=== PATIENT | male | born 1940 | race Caucasian/White ===

== ENCOUNTER → 2017-06-15 | Outpatient (CLI) | payer MEDICARE ==
[~2017-06-15] MED LIST: ATOR20TA65 PO; CHOL100062 PO; GLYB1.2524 PO; HYDR-4309 PO; LOSA-51 PO; OMEP-125 PO; ONDA4TAB PO; PIOG30TA3 PO; SITA1TAB13 PO; SITA1TBM4 PO; [UNRECOGNIZED DRUG - CODE] PO
[2017-06-15 14:54] LABS: PLATELET COUNT, AUTOMATED 190 K/uL (150-450)
== END ==
LOC: LAB 14:16
PROVIDERS: ATTEND Nurse Practitioner Family
DX: E11.22 Type 2 diabetes mellitus with diabetic chronic kidney disease (principal); E11.65 Type 2 diabetes mellitus with hyperglycemia; D51.0 Vitamin B12 deficiency anemia due to intrinsic factor deficiency; E78.00 Pure hypercholesterolemia, unspecified
CPT/HCPCS: 36415; 82040; 82247; 82310; 82374; 82435; 82465; 82565; 82607; 82947; 83036; 83718; 84075; 84132; 84155; 84295; 84450; 84460; 84478; 84520; 85025

== ENCOUNTER 2017-06-26 11:15 | Outpatient (RCR) | payer MEDICARE ==
--- NOTE | 2017-06-20 13:35 | PT INITIAL EVALUATION ---
MEDICAL DIAGNOSIS: I10, E11.65, R68.89, E66.9 TREATMENT DIAGNOSIS: same, low back pain with radiating pain DATE OF ONSET: 04/20/17 SUBJECTIVE: Marcial Cedeno presents to physical therapy with complaints of low back pain with radiating pain down his L LE to his knee that started approximately 2 months ago, however, the low back pain has been going on for over 4 years. Other than that, he reports that he feels great and would like to be placed on a new exercise program that he can work on throughout the year. He rates his low back pain to be 4-5/10 when he is walking and standing. He reports that when he sits, he reports the pain to be 0/10. Pain location is L3-5 facet joints and described as dull ache. Pain is worse with standing, walking, bending , lifting and better with sitting, lying. REHAB PROBLEM LIST: Increased Pain Decreased ROM Decreased Strength Decreased Endurance Decreased Balance Decreased Function Decreased Gait PREVIOUS MEDICAL HISTORY: See EMR OCCUPATION: Retired OBJECTIVE: Posture: He demonstrated B rounded shoulders, increased thoracic kyphosis, and decreased lumbar lordosis. ROM: Trunk AROM: flexion: NIL with normal end feels. extension: NIL with empty end feel. R sidegliding NIL with empty end feel. L sidegliding: NIL with normal end feel. Strength: B hip flexion, extension, abduction, and B ankle DF: 4+/5. B hip adduction, B knee flexion and extension, B ankle PF: 5/5 Palpation: TTP: L3-5 facet joints on the L side Special Tests: Repeated trunk extension: pain during the motion at end range and better following test with increased trunk AROM with normalized end feels. Mobility: Independent Gait: He demonstrated the following gait mechanics: increased base of support, decreased step lengths, B foot clearance, decreased velocity, no LOB, increased trunk movement, and decreased pelvic mobility. ASSESSMENT: Marcial will benefit from skilled physical therapy addressing the listed impairments to improve function and QOL. With his low back pain, he demonstrated a provisional classification of posterior derangement that responded well (centralized) with extension based principles. Short Term Goals 2 weeks: Pt will demonstrate centralized low back pain to improve function and QOL. 4 weeks: Pt will demonstrate abolished low back pain to improve function and QOL. 4 weeks: Pt will be independent on his home exercise program Patient's Goals reduce low back pain and be independent on his home exercise program PLAN: Patient to be seen for Manual Therapy/STM/MET Strengthening/condition Range of Motion Spinal Stabilization Work Hardening/Cond Stretching Neuromuscular Re-ed Closed Chain Program Posture/Body mechanics Gait Trg/Balance Trg Home Exercise Program Therapeutic Activities 2x/Week for 4 Weeks If you have any questions, comments, or concerns about this report or plan, please contact me at . Thank you, Salomon Bhatti, PT, DPT MTDD
--- NOTE | 2017-06-26 15:03 | PT PLAN OF CARE ---
Physician: BERNICE Almanza Patient is being seen: 1-2x/week Therapist: Salomon Bhatti, PT, DPT Medical Diagnosis: I10, E11.65, R68.89, E66.9 Treatment Diagnosis: same, low back pain with radiating pain Date of Onset: 04/20/17 Date of Initial Evaluation: 06/20/17 Date patient was last seen: 06/26/17 Number of treatments: 3 Number of cancellations/No shows: 0 INTERVENTIONS: Manual Therapy/STM/MET Strengthening/condition Range of Motion Spinal Stabilization Work Hardening/Cond Stretching Neuromuscular Re-ed Closed Chain Program Posture/Body mechanics Gait Trg/Balance Trg Home Exercise Program Therapeutic Activities GOALS: 2 weeks: Pt will demonstrate centralized low back pain to improve function and QOL. MET 4 weeks: Pt will demonstrate abolished low back pain to improve function and QOL. Almost MET 4 weeks: Pt will be independent on his home exercise program. MET PATIENT'S GOAL: reduce low back pain and be independent on his home exercise program: MET Status of Patient's Goals: Progressed well will MET with specific home exercise Patient Compliance: Excellent Prognosis: Excellent Reasons for discontinuing therapy: This is a discharge note for Marcial Cedeno. He reports that he is doing well. He states that he continues to do his specific exercise with good results along with improving posture with lumbar roll. He states that he feels like he is 70% better or back to his normal. He reports that he is independent on his specific exercise. He is progressing well within PT. He increased L3-5 accessory mobility along with trunk AROM in all directions. He demonstrates centralized low back pain that continues to abolish with increased trunk AROM in all directions with normal end feels. He was educated on the progression and recovery of the current injury. Furthermore, he was educated on how to prevent reoccurrences. He will be discharged from PT and will start cardiac rehab this week. Posture: He demonstrated B rounded shoulders, increased thoracic kyphosis, and decreased lumbar lordosis. ROM: Trunk AROM: flexion: NIL with normal end feels. extension: NIL with normal end feel. R sidegliding NIL with normal end feel. L sidegliding: NIL with normal end feel. Strength: B hip flexion, extension, abduction, and B ankle DF: 4+/5. B hip adduction, B knee flexion and extension, B ankle PF: 5/5 Palpation: No longer TTP. Special Tests: Repeated trunk extension: pain during the motion at end range and better following test with increased trunk AROM with normalized end feels. Mobility: Independent MTDD
== END 2017-06-26 18:00 | disposition home or self-care (01) ==
LOC: PT 11:15
PROVIDERS: ATTEND Nurse Practitioner Family
DX: M54.5 Low back pain (principal); E11.65 Type 2 diabetes mellitus with hyperglycemia; R68.89 Other general symptoms and signs; E66.9 Obesity, unspecified; I10 Essential (primary) hypertension
CPT/HCPCS: 97162

== ENCOUNTER 2017-09-05 12:00 | Outpatient (RCR) | payer MEDICARE ==
--- NOTE | 2017-09-06 10:09 | RADIOLOGY IMAGING REPORT ---
FACILITY: [facility] [place] PATIENT NAME: Marcial Cedeno : 1940 MR: [id number] V: [id number] EXAM DATE: ORDERING PHYSICIAN: AURE BISHOP TECHNOLOGIST: Location: [facility] Patient: Marcial Cedeno : 1940 Visit/Account:[id number] Date of Sevice: 09/05/2017 EXAMINATION: Ultrasound of the right thigh/groin area 09/05/2017 2:30 PM HISTORY: Mass in the right medial thigh/groin area COMPARISON: CT of the abdomen and pelvis 12/11/2013 does not really fully assess this area. FINDINGS: Imaging of the area of palpable concern in the upper medial right thigh towards the groin demonstrates a subcutaneous mass which measures 8.4 x 2.8 x 8.8 cm. This is some lobulation of the i nternal structure but for the most part is fairly homogeneous echogenic with similar echogenicity to adjacent fat. A 5 mm hypoechoic cystic areas demonstrated within this structure which does not show significant internal flow. Largest right inguinal lymph node visualized measures 3.7 x 1.50 cm but has a preserved echogenic fat ty hilus and is likely benign. IMPRESSION: 1. Solid 8.8 cm mass in the upper medial right thigh correlating with palpable finding. Based on im aging features lipoma would be favored although the sonographic appearance is nonspecific. This is o f a small cystic or necrotic area within it in the least clinical follow-up will be necessary to excl ude more aggressive malignant transformation. 2. Mildly prominent but benign-appearing right inguinal lymph node. Report Dictated By: Arnoldo Villalba MD at 09/06/2017 10:00 AM Report E-Signed By: Arnoldo Villalba MD at 09/06/2017 10:05 AM WSN:[email or web address]
[2017-09-19] MEDS ORDERED: GABA-549 PO (13:55)
[2017-09-19] MEDS ORDERED: GLIM4TAB50 PO (13:55)
[2017-09-19] MEDS ORDERED: LOSA-57 PO (13:55)
[2017-09-19] MEDS ORDERED: METF-420 PO (13:55)
[2017-09-19] MEDS ORDERED: PIOG45TA3 PO (13:55)
[2017-09-19] MEDS ORDERED: INSU200I4 SC (13:55)
== END 2017-09-05 18:00 | disposition home or self-care (01) ==
LOC: US 12:00
PROVIDERS: ATTEND Nurse Practitioner Family
DX: R19.00 Intra-abdominal and pelvic swelling, mass and lump, unspecified site (principal)
CPT/HCPCS: 76705

== ENCOUNTER → 2017-09-14 | Outpatient (CLI) | payer MEDICARE ==
--- NOTE | 2017-09-14 16:17 | EKG ---
FACILITY: [facility] PATIENT NAME: GINA ABBOTT : [id number] MR: [id number] V: [id number] EXAM DATE: ORDERING PHYSICIAN: GINA POTTS TECHNOLOGIST: ROBERTA Test Reason : SURG CLEARANCE Blood Pressure : / mmHG Vent. Rate : 077 BPM Atrial Rate : 077 BPM P-R Int : 144 ms QRS Dur : 100 ms QT Int : 402 ms P-R-T Axes : 010 -28 005 degrees QTc Int : 454 ms Normal sinus rhythm Normal ECG No previous ECGs available Referred By: Confirmed By:
== END ==
LOC: RESP 11:24
PROVIDERS: ATTEND Surgery
DX: Z02.9 Encounter for administrative examinations, unspecified (principal)

== ENCOUNTER → 2017-09-24 | Outpatient (CLI) | payer MEDICARE ==
[~2017-09-24] MED LIST changes: +GABA-549 PO; +GLIM4TAB50 PO; +INSU200I4 SC; +LOSA-57 PO; +METF-420 PO; +PIOG45TA3 PO
[2017-09-24 12:29] LABS: PLATELET COUNT, AUTOMATED 188 K/uL (150-450)
== END ==
LOC: LAB 11:41
PROVIDERS: ATTEND Nurse Practitioner Family
DX: M10.00 Idiopathic gout, unspecified site (principal); I12.9 Hypertensive chronic kidney disease with stage 1 through stage 4 chronic kidney disease, or unspecified chronic kidney disease; E11.22 Type 2 diabetes mellitus with diabetic chronic kidney disease; E11.65 Type 2 diabetes mellitus with hyperglycemia; R53.83 Other fatigue; D51.0 Vitamin B12 deficiency anemia due to intrinsic factor deficiency; E78.00 Pure hypercholesterolemia, unspecified
CPT/HCPCS: 36415; 82040; 82247; 82310; 82374; 82435; 82465; 82565; 82607; 82947; 83036; 83718; 84075; 84132; 84155; 84295; 84450; 84460; 84478; 84520; 85025

== ENCOUNTER 2017-11-01 01:01 | Day surgery (SDC) | payer MEDICARE ==
[~2017-11-01] VITALS: Ht 162.6 cm; Wt 97.1 kg
[2017-11-01] VITALS (7 sets, daily range): BP systolic 121–152; BP diastolic 60–82
[~2017-11-01 01:01] MED LIST changes: -METF-420 PO; +METF-421 PO
[2017-11-01] MEDS ORDERED: ceFAZolin(*) 1 GM VIAL 3 GM in NS(*) 0.9% 100 ML BAG 100 ML IVPB ONE (06:45)
[2017-11-01] MEDS ORDERED: LIDOCAINE/SOD BICARB 8.4% SYR ID ONE (06:45)
[2017-11-01] MEDS ORDERED: MIDAZOLAM 2 MG/2 ML VIAL IVP PRN (06:45)
[2017-11-01] MEDS ORDERED: NORMOSOL R SOLN(*) 1000 ML BAG 1,000 ML IV PRN (06:45)
[2017-11-01] MEDS ORDERED: FAMOTIDINE 20 MG TAB PO ONE (06:45)
[2017-11-01] MEDS ORDERED: fentaNYL CITR 100 MCG/2 ML AMP ONE (07:59)
[2017-11-01] MEDS ORDERED: LIDOCAINE 2% IV 100 MG/5ML SYR ONE (08:00)
[2017-11-01] MEDS ORDERED: PROPOFOL EMUL(*) 10MG/ML 20 ML 20 ML ONE (08:02)
[2017-11-01] MEDS ORDERED: ROPIVACAINE 0.5% 20 ML VIAL ONE (08:40)
[2017-11-01] MEDS ORDERED: LIDO/EPI 1% MDV 1:100,000 20ML INFIL ONE (08:41)
[2017-11-01] MEDS ORDERED: ONDANSETRON 4 MG/2 ML VIAL ONE (08:59)
[2017-11-01] MEDS ORDERED: ePHEDrine 25 MG/5 ML DISP.SYR IVP ONE (09:04)
[2017-11-01] MEDS ORDERED: DOCU-416 PO (09:55)
[2017-11-01] MEDS ORDERED: OXYC-854 PO (09:55)
--- NOTE | 2017-11-01 09:58 | Short(Outpt) Discharge Summary ---
Discharge Summary Reason for Hosp/Final Diag: (1) Mass of right thigh Status: Chronic Hospital Course & Plan: Right thigh mass excised without problems. Departure Discharge to: Home, Self Care Discharge Instructions Home Meds Active Scripts Docusate Sodium (COLACE) 100 Mg Capsule, 1 CAP PO BID, #30 CAP 0 Refills TAKE WITH A FULL GLASS OF WATER Prov:GINA POTTS MD 11/01/17 Oxycodone Hcl/Acet 5/325 Mg (ENDOCET 5-325 TABLET) 1 Each Tablet, 1 TAB PO Q4H Y for PAIN, #20 TAB 0 Refills Prov:GINA POTTS MD 11/01/17 Reported Medications Gabapentin (GABAPENTIN) 300 Mg Capsule, 2 CAP PO DAILY, CAPSULE 09/19/17 Metformin Hcl (METFORMIN HCL) 1,000 Mg Tablet, 1 TAB PO BID, TAB 09/19/17 Insulin Degludec (Tresiba Flextouch U-200) 200 Unit/Ml (3 Ml) Insuln.pen, 26 UNITS SC DAILY 09/19/17 Glimepiride (GLIMEPIRIDE) 4 Mg Tablet, 4 MG PO QDAY 09/19/17 Losartan/Hydrochlorothiazide (LOSARTAN-HCTZ 100-12.5 MG TAB) 1 Each Tablet, 1 EACH PO QDAY 09/19/17 Pioglitazone Hcl (PIOGLITAZONE HCL) 45 Mg Tablet, 45 MG PO QDAY 09/19/17 Cholecalciferol (Vitamin D3) (VITAMIN D) 10,000 Unit Capsule, 42729 UNIT PO 12/13/12 Vitamin A (VITAMIN A) 10,000 Unit Capsule, 73208 UNIT PO QDAY 12/13/12 Atorvastatin Calcium (ATORVASTATIN CALCIUM) 20 Mg Tablet, 1 TAB PO QDAY TAKE ONE TABLET BY MOUTH ONCE A DAY AT BED TIME 12/13/12 Follow up Referrals: General Surgery - 11/21/17 @ Surgery, General with Gina Potts Md You have a follow up appointment scheduled on Tuesday, November 21, 2017, at 4:30pm with Dr. Potts. Diet: Diabetic Activity: As Tolerated Special Instructions: You may remove the white surgical dressing on 11/03/17, then you can shower. After showering, leave the incision open to air but leave the steristrips in place until they fall off on their own. Do not immerse the incision for 2 weeks. GINA POTTS MD November 01, 2017 09:58
--- NOTE | 2017-11-01 10:03 | Post Operative Progress Note ---
Post Operative Progress Note Date: November 01, 2017 Time: 09:58 Surgeon: Karlee Dictation number: [id number] Anesthesia: LMA by Dr. Luna Pre-Op Diagnosis: Right thigh mass Post-Op Diagnosis: OLIVIA Findings: C/W benign lipoma Procedure(s): excision of right thigh mass, mass was about 10cm x 15cm x 5cm. Specimen Removed:(May be N/A): Right thigh mass Complications: None Total Tourniquet Time: none Fluids: See anesthesia record Estimated Blood Loss: Minimal Date OP Note Dictated: November 01, 2017 Time OP Note Dictated: 09:59 GINA POTTS MD November 01, 2017 10:03
--- NOTE | 2017-11-01 15:15 | OPERATIVE REPORT 1 ---
EVENT DATE: November 01, 2017 SURGEON: Marcial Desir MD ANESTHESIOLOGIST: Adriano Luna MD ANESTHESIA: LMA. PREOPERATIVE DIAGNOSIS Right thigh mass. POSTOPERATIVE DIAGNOSIS Right thigh mass. PROCEDURE PERFORMED Excision of right thigh mass. COMPLICATIONS None. CONDITION Stable. BLOOD LOSS Minimal. INDICATIONS This is a 77-year-old gentleman who presented to my office with a large mass on his right inner thigh that has been present for many years, but slowly getting larger, and he would like to have it removed. DESCRIPTION OF PROCEDURE The patient was brought to the operating room and placed supine on the operating table. LMA anesthesia was administered, and his right proximal inner thigh was prepped and draped in a sterile fashion. Timeout was completed. I marked the skin overlying the mass and then anesthetized the skin with 0.5% ropivacaine plain and made an elliptical incision over the mass to remove some of the excess skin. I dissected through the dermis and subcutaneous fat and then dropped into the plane around the mass, which appeared to be a benign lipoma which was distinct from the surrounding subcutaneous fat. I did mostly blunt dissection all the way around the lipoma, but used a little bit of electrocautery on some bands of tissue, but ultimately was easily able to remove this mass from the patient's thigh. The wound was made hemostasis with electrocautery, irrigated, and dried. I closed the subcutaneous pocket with running 3-0 Vicryl sutures and then closed the incision with subcutaneous running 3-0 Vicryl sutures. The skin was closed with interrupted 3-0 Vicryl deep dermal sutures and 4-0 Monocryl running subcuticular suture. Skin was cleaned and dried, and Steri-Strips were applied, followed by sterile surgical dressing. The patient was awakened and LMA removed. He was transported to the recovery room in stable condition having tolerated the procedure without any apparent problems. ZABRINA
== END 2017-11-01 10:50 | disposition home or self-care (01) ==
LOC: OR 01:01
PROVIDERS: ATTEND Surgery
DX: D17.23 Benign lipomatous neoplasm of skin and subcutaneous tissue of right leg (principal); E78.5 Hyperlipidemia, unspecified; E11.9 Type 2 diabetes mellitus without complications; I10 Essential (primary) hypertension; K21.9 Gastro-esophageal reflux disease without esophagitis; E66.9 Obesity, unspecified; Z68.36 Body mass index [BMI] 36.0-36.9, adult; Z79.4 Long term (current) use of insulin; Z87.891 Personal history of nicotine dependence
CPT/HCPCS: 11406; 12036; 36416; 82948; 88305; A9270; J0690; J2001; J2405; J2704; J2795; J3010; J7050

== ENCOUNTER → 2018-01-17 | Outpatient (CLI) | payer MEDICARE ==
[~2018-01-17] MED LIST changes: +DOCU-416 PO; +OXYC-854 PO; -PIOG30TA3 PO; +PIOG30TA71 PO; -PIOG45TA3 PO; +PIOG45TA65 PO
== END ==
LOC: LAB 12:53
PROVIDERS: ATTEND Nurse Practitioner Family
DX: E11.22 Type 2 diabetes mellitus with diabetic chronic kidney disease (principal); E11.65 Type 2 diabetes mellitus with hyperglycemia; R53.83 Other fatigue; E78.00 Pure hypercholesterolemia, unspecified; I12.9 Hypertensive chronic kidney disease with stage 1 through stage 4 chronic kidney disease, or unspecified chronic kidney disease; E06.3 Autoimmune thyroiditis; D50.9 Iron deficiency anemia, unspecified; R53.81 Other malaise
CPT/HCPCS: 36415; 82040; 82247; 82310; 82374; 82435; 82465; 82565; 82947; 83036; 83718; 84075; 84132; 84155; 84295; 84443; 84450; 84460; 84478; 84520

== ENCOUNTER → 2018-04-22 | Outpatient (CLI) | payer MEDICARE ==
[~2018-04-22] MED LIST changes: -HYDR-4309 PO; +HYDR-653 PO; -METF-421 PO; +METF-452 PO
[2018-04-22 11:06] LABS: PLATELET COUNT, AUTOMATED 199 K/uL (150-450)
== END ==
LOC: LAB 10:26
PROVIDERS: ATTEND Nurse Practitioner Family
DX: E11.22 Type 2 diabetes mellitus with diabetic chronic kidney disease (principal); I10 Essential (primary) hypertension; E11.65 Type 2 diabetes mellitus with hyperglycemia; D51.0 Vitamin B12 deficiency anemia due to intrinsic factor deficiency; E78.00 Pure hypercholesterolemia, unspecified; E55.9 Vitamin D deficiency, unspecified
CPT/HCPCS: 36415; 82040; 82247; 82306; 82310; 82374; 82435; 82565; 82607; 82728; 82746; 82947; 83036; 84075; 84132; 84155; 84295; 84450; 84460; 84520; 85025

== ENCOUNTER → 2018-08-02 | Outpatient (CLI) | payer MEDICARE | LOC: LAB 11:06 | PROVIDERS: ATTEND Nurse Practitioner Family | DX: D50.9 Iron deficiency anemia, unspecified (principal); E53.8 Deficiency of other specified B group vitamins | CPT/HCPCS: 36415; 82728; 82746 ==

== ENCOUNTER → 2018-11-08 | Outpatient (CLI) | payer MEDICARE ==
[2018-11-08 11:07] LABS: PLATELET COUNT, AUTOMATED 212 K/uL (150-450)
== END ==
LOC: LAB 09:56
PROVIDERS: ATTEND Nurse Practitioner Family
DX: E11.22 Type 2 diabetes mellitus with diabetic chronic kidney disease (principal); R53.81 Other malaise; E87.8 Other disorders of electrolyte and fluid balance, not elsewhere classified; E50.9 Vitamin A deficiency, unspecified; M10.00 Idiopathic gout, unspecified site
CPT/HCPCS: 36415; 82040; 82043; 82247; 82310; 82374; 82435; 82565; 82728; 82947; 83036; 84075; 84132; 84155; 84295; 84450; 84460; 84520; 84550; 85025

== ENCOUNTER → 2018-11-21 | Outpatient (CLI) | payer MEDICARE ==
[~2018-11-21] MED LIST changes: -OMEP-125 PO; +OMEP-126 PO
--- NOTE | 2018-11-22 11:10 | EKG ---
FACILITY: [facility] PATIENT NAME: GINA ABBOTT : [id number] MR: [id number] V: [id number] EXAM DATE: ORDERING PHYSICIAN: CRISTY BURNS TECHNOLOGIST: ROBERTA Test Reason : PRE-OP Blood Pressure : / mmHG Vent. Rate : 074 BPM Atrial Rate : 074 BPM P-R Int : 150 ms QRS Dur : 104 ms QT Int : 428 ms P-R-T Axes : 034 -32 -18 degrees QTc Int : 475 ms Normal sinus rhythm Left axis deviation Abnormal ECG When compared with ECG of 14-SEP-2017 10:35, No significant change was found Confirmed by GINA KERNS ([id number]) on 11/22/2018 4:01:53 PM Referred By: GRANT Confirmed By:GINA KERNS
== END ==
LOC: RAD 14:56
PROVIDERS: ATTEND Surgery
DX: R94.31 Abnormal electrocardiogram [ECG] [EKG] (principal)

== ENCOUNTER 2018-12-27 01:03 | Day surgery (SDC) | payer MEDICARE ==
[~2018-12-27] VITALS: Ht 162.6 cm; Wt 93.0 kg
[2018-12-27] VITALS (7 sets, daily range): BP systolic 125–152; BP diastolic 69–83
[~2018-12-27 01:03] MED LIST changes: +DULO30CA35 PO; +SITA1TAB17 PO
[2018-12-27] MEDS ORDERED: LIDOCAINE/SOD BICARB 8.4% SYR ID ONE (07:10)
[2018-12-27] MEDS ORDERED: NORMOSOL R SOLN(*) 1000 ML BAG 1,000 ML IV PRN (07:10)
[2018-12-27] MEDS ORDERED: PROPOFOL EMUL(*) 10MG/ML 20 ML 20 ML ONE ×3 (07:12→08:12)
--- NOTE | 2018-12-27 08:35 | Short(Outpt) Discharge Summary ---
Discharge Summary Reason for Hosp/Final Diag: (1) Anemia Hospital Course & Plan: pt presented for egd and colonoscopy. he tolerated the procedure well and will be discharged home when criteria met. Departure Discharge to: Home Discharge Instructions Home Meds Reported Medications Duloxetine Hcl (CYMBALTA) 30 Mg Capsule.dr, 30 MG PO QDAY, #5 CAP 12/20/18 Omeprazole (OMEPRAZOLE) 20 Mg Capsule.dr, 1 CAP PO QDAY, CAP 12/20/18 Sitagliptin Phos/Metformin Hcl (JANUMET 50-1,000 MG TABLET) 1 Each Tablet, 1 EACH PO DAILY 12/20/18 Gabapentin (GABAPENTIN) 300 Mg Capsule, 2 CAP PO DAILY, CAPSULE 09/19/17 Insulin Degludec (Tresiba Flextouch U-200) 200 Unit/Ml (3 Ml) Insuln.pen, 30 UN ITS SC DAILY 09/19/17 Glimepiride (GLIMEPIRIDE) 4 Mg Tablet, 4 MG PO QDAY 09/19/17 Losartan/Hydrochlorothiazide (LOSARTAN-HCTZ 100-12.5 MG TAB) 1 Each Tablet, 1 EACH PO QDAY 09/19/17 Pioglitazone Hcl (PIOGLITAZONE HCL) 45 Mg Tablet, 45 MG PO QDAY 09/19/17 Cholecalciferol (Vitamin D3) (VITAMIN D) 10,000 Unit Capsule, 79121 UNIT PO 12/13/12 Vitamin A (VITAMIN A) 10,000 Unit Capsule, 62591 UNIT PO QDAY 12/13/12 Atorvastatin Calcium (ATORVASTATIN CALCIUM) 20 Mg Tablet, 1 TAB PO QDAY TAKE ONE TABLET BY MOUTH ONCE A DAY AT BED TIME 12/13/12 Discontinued Reported Medications Metformin Hcl (METFORMIN HCL) 1,000 Mg Tablet, 1 TAB PO BID, TAB 09/19/17 Diet: Regular Activity: As Tolerated Special Instructions: we will call you in 10 days with biopsy results. CRISTY BURNS Dec 27, 2018 08:35
== END 2018-12-27 09:35 | disposition home or self-care (01) ==
LOC: OR 01:03
PROVIDERS: ATTEND Surgery
DX: K64.4 Residual hemorrhoidal skin tags (principal); K64.8 Other hemorrhoids; K22.2 Esophageal obstruction; K44.9 Diaphragmatic hernia without obstruction or gangrene; K29.70 Gastritis, unspecified, without bleeding
CPT/HCPCS: 00813; 36416; 43239; 43249; 45398; 82948; 87077; 88305; 88313; 88342; C1726; J2704